=== PATIENT | male | born 2000 | race African-American/Black ===

== ENCOUNTER 2022-06-23 11:24 | Emergency (ER) | payer OTHER ==
[~2022-06-23 11:24] MED LIST: Iopamidol 370 76% 100 ML VIAL ONE
[2022-06-23] MEDS ORDERED: Calcium Chloride 1 GM/10 ML Abboject SYRINGE ONE ×2 (11:38→12:46)
[2022-06-23] MEDS ORDERED: EPINEPHrine 1 MG/10 ML Abboject SYRINGE ONE (11:38)
[2022-06-23] MEDS ORDERED: Sodium Bicarb 50 MEQ/50 ML Abboject 8.4% SYRINGE ONE (11:38)
[2022-06-23 12:06] LABS: #Monocytes 0.3 thou/uL (0.11-0.59); #Neutrophils 2.5 thou/uL (1.40-6.50); %Basophils 0.6 % (0.0-1.0); %Eosinophils 0.3 % (0.0-10.0); %Monocytes 4.8 % (0.0-10.0); %Neutrophils 35.3 % (42.0-75.0); Hemoglobin 12.4 g/dL (14.0-18.0); Mean Corpuscular HGB CONC 30.2 g/dL (32.0-36.0); Mean Corpuscular Hemoglobin 30.5 pg (27.0-31.0); Mean Corpuscular Volume 101.2 fl (78.0-98.0); Mean Platelet Volume 9.5 fL (7.4-10.4); Platelet Count 166 10x3/uL (130-400); RBC Distribution Width 12.7 % (11.5-14.5); Red Blood Cell (RBC) Count 4.06 mill/uL (4.70-6.10); White Blood Cell (WBC) Count 7.1 10x3/uL (4.8-10.8)
[2022-06-23 12:16] LABS: Bilirubin Unable to Interpret (Negative); Blood, Urine Unable to Interpret (Negative); Clarity Hazy (Clear); Glucose, Urine (Dipstick) Unable to Interpret mg/dL (Negative); Ketone, Urine Unable to Interpret mg/dL (Negative); Leukocyte Unable to Interpret (Negative); Nitrite Unable to Interpret (Negative); Protein, Urine (Dipstick) Unable to Interpret mg/dL (Neg-Trace); Urobilinogen UNABLE TO INTERPRET mg/dL (Less than 2); pH, Urine 6.5 (5.0-9.0)
[2022-06-23 12:18] LABS: Bacteria/HPF Rare-Few HPF (None Seen); RBC/HPF Greater than 50 HPF (0-3); Squamous Epithelial 0-3 HPF (0-3); WBC/HPF 0-3 HPF (0-3)
[2022-06-23 12:34] LABS: ALT (SGPT) 166 U/L (8-55); AST (SGOT) 179 U/L (5-34); Albumin 2.9 g/dL (3.5-5.0); Alkaline Phosphatase 46 U/L (40-110); Anion Gap 55 mmol/L (10-20); BUN (Urea Nitrogen) 8 mg/dL (8.9-20.6); Bilirubin, Total 0.2 mg/dL (0.2-1.2); Calc. Creatinine Clearance 0 mL/min (70-130); Calcium 11.3 mg/dL (7.8-10.44); Carbon Dioxide 15 mmol/L (22-29); Chloride 92 mmol/L (98-107); Estimated GFR 66; Globulin 1.9 g/dL (2.4-3.5); Glucose 265 mg/dL (70-105); Lipase 96 U/L (8-78); Potassium 3.9 mmol/L (3.5-5.1); Protein, Total 4.8 g/dL (6.0-8.3)
[2022-06-23 12:37] LABS: INR-International Normal Ratio 1.4
[2022-06-23 12:38] LABS: PTT 46.4 sec (22.9-36.1); Sodium 158 mmol/L (136-145)
[2022-06-23 13:24] LABS: Analyzer IN Cardio ER; Base Excess (BEa) -7.5 mEq/L (-2.0 to +3.0); Carboxyhemoglobin (COHb) 0.2 gm% (0.0-3.0); Hematocrit-ABG 29 % (42.0-52.0); Hemoglobin (Hb) 9.9 g/dL (14.0-18.0)
[2022-06-23 13:26] LABS: CO2 Tension 105.2 mmHg (35.0-45.0); pH, Arterial 6.994 (7.35-7.45)
[2022-06-23 13:27] LABS: O2 Tension (PaO2), arterial 59.9 mmHg (80.0-100.0)
[2022-06-23 13:28] LABS: Calcium, Ionized (arterial) 0.77 mmol/L (1.12-1.30); Puncture Site LRA
[2022-06-23 13:29] LABS: Actual Bicarbonate (HCO3a) 15.3 mEq/L (22-28); Analyzer IN Cardio ER; Base Excess (BEa) -16.6 mEq/L (-2.0 to +3.0); Calcium, Ionized (arterial) 1.53 mmol/L (1.12-1.30); Carboxyhemoglobin (COHb) 0.3 gm% (0.0-3.0); Hematocrit-ABG 24 % (42.0-52.0); O2 Tension (PaO2), arterial 109.1 mmHg (80.0-100.0); Potassium - ABG Lab 4.53 mmol/L (3.70-5.30)
[2022-06-23 13:30] LABS: CO2 Tension 76.7 mmHg (35.0-45.0); pH, Arterial 6.919 (7.35-7.45)
[2022-06-23 13:31] LABS: ALV-art Gradient 508.025 mmHg (0-20); Puncture Site RFA
[2022-06-23] MEDS ORDERED: Lidocaine 1% (PF) 30 ML VIAL ONE (15:07)
[2022-06-29 12:38] LABS: Analyzer IN Cardio OR; Base Excess (BEa) -16.9 mEq/L (-2.0 to +3.0); CO2 Tension 44.9 mmHg (35.0-45.0); Carboxyhemoglobin (COHb) 1.7 gm% (0.0-3.0); Hematocrit-ABG 16 % (42.0-52.0); O2 Tension (PaO2), arterial 100.8 mmHg (80.0-100.0); Potassium - ABG Lab 4.87 mmol/L (3.70-5.30)
[2022-06-29 12:38] LABS: Analyzer IN Cardio OR; Base Excess (BEa) -21.9 mEq/L (-2.0 to +3.0); CO2 Tension 52.6 mmHg (35.0-45.0); Carboxyhemoglobin (COHb) 0.7 gm% (0.0-3.0); Hematocrit-ABG 32 % (42.0-52.0); O2 Tension (PaO2), arterial 262.6 mmHg (80.0-100.0)
[2022-06-29 12:38] LABS: Analyzer IN Cardio OR; Base Excess (BEa) -19.8 mEq/L (-2.0 to +3.0); CO2 Tension 42.3 mmHg (35.0-45.0); Carboxyhemoglobin (COHb) 1.1 gm% (0.0-3.0); Hematocrit-ABG 22 % (42.0-52.0); Hemoglobin (Hb) 7.5 g/dL (11.4-15.4); O2 Tension (PaO2), arterial 285.9 mmHg (80.0-100.0); Potassium - ABG Lab 4.87 mmol/L (3.70-5.30)
[2022-06-29 12:39] LABS: pH, Arterial 6.913 (7.35-7.45)
[2022-06-29 12:40] LABS: Actual Bicarbonate (HCO3a) 10.4 mEq/L (22-28); Potassium - ABG Lab 7.24 mmol/L (3.70-5.30)
[2022-06-29 12:41] LABS: Calcium, Ionized (arterial) 1.87 mmol/L (1.12-1.30); Puncture Site Arterial Line
[2022-06-29 12:42] LABS: Actual Bicarbonate (HCO3a) 10.1 mEq/L (22-28); pH, Arterial 6.996 (7.35-7.45)
[2022-06-29 12:43] LABS: Calcium, Ionized (arterial) 0.78 mmol/L (1.12-1.30); Puncture Site Arterial Line
[2022-06-29 12:44] LABS: pH, Arterial 7.047 (7.35-7.45)
[2022-06-29 12:45] LABS: Actual Bicarbonate (HCO3a) 12.1 mEq/L (22-28); Calcium, Ionized (arterial) 0.68 mmol/L (1.12-1.30); Hemoglobin (Hb) 5.6 g/dL (11.4-15.4); Puncture Site Arterial Line
== END 2022-06-23 15:31 | disposition expired ==
LOC: EDBD 11:24 → ERS 11:24
DX: R58 Hemorrhage, not elsewhere classified (principal); V09.9XXA Pedestrian injured in unspecified transport accident, initial encounter; Z23 Encounter for immunization
CPT/HCPCS: 32551; 36415; 36430; 36556; 36600; 36620; 51702; 70450; 70486; 71045; 71260; 72125; 72170; 74177; 76377; 80053; 81003; 81015; 82805; 83690; 85025; 85610; 85730; 86850; 86900; 86901; 92950; 96365; 96374; C1751; C1769; C1894; G0390; J0171; J2001; P9012; P9016; P9035; P9048; P9059; Q9967